=== PATIENT | female | born 1975 | race Two or more races ===

== ENCOUNTER → 2017-07-29 | Outpatient (CLI) | payer OTHER | END | disposition home or self-care (01) | LOC: CFH 10:32 | PROVIDERS: ATTEND Obstetrics & Gynecology | DX: Z12.31 Encounter for screening mammogram for malignant neoplasm of breast (principal) | CPT/HCPCS: G0202 ==

== ENCOUNTER 2019-03-03 21:15 | Emergency (ER) | payer OTHER ==
[2019-03-03 22:09] LABS: BASOPHILS # (AUTO) 0.01 x10^3/uL (0-0.1); BASOPHILS % (AUTO) 0 % (0-1); EOSINOPHILS # (AUTO) 0.18 x10^3/uL (0-0.4); EOSINOPHILS % (AUTO) 3 % (1-7); LYMPHOCYTES # (AUTO) 3.36 x10^3/uL (1-3.4); LYMPHOCYTES % (AUTO) 53 % (22-44); MD NO; MEAN CORPUSCULAR HEMOGLOBIN 31.4 pg (27.0-34.8); MEAN CORPUSCULAR VOLUME 92.3 fL (80-100); MEAN PLATELET VOLUME 11.1 fL (7.4-10.4); MONOCYTES # (AUTO) 0.42 x10^3/uL (0.2-0.8); MONOCYTES % (AUTO) 7 % (2-9); NEUTROPHILS # (AUTO) 2.37 x10^3/uL (1.8-6.8); NEUTROPHILS % (AUTO) 37 % (42-75); PLATELET COUNT 202 x10^3/uL (130-400); RED BLOOD COUNT 4.09 x10^6/uL (3.82-5.3)
[2019-03-03 22:19] LABS: ALBUMIN 3.9 g/dL (3.4-5.0); ANION GAP 5 mmol/L (5-15); CALCIUM 8.8 mg/dL (8.5-10.1); CHLORIDE 112 mmol/L (98-107); CREATININE 0.76 mg/dL (0.55-1.02)
--- NOTE | 2019-03-03 22:30 | NUR ---
pt called to room from lobby
--- NOTE | 2019-03-03 23:30 | NUR ---
PT HERE FOR GOFF, BUZZING IN EARS AND DIZZINESS. VSS. 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 TECH AT BEDSIDE. CALL LIGHT IN REACH
[2019-03-03 23:59] VITALS: BP 154/81
--- NOTE | 2019-03-04 00:13 | NUR ---
Patient given discharge instructions and they have confirmed that they understand the instructions. Patient ambulatory with steady gait.
== END 2019-03-04 00:16 | disposition home or self-care (01) ==
LOC: ED 23:59
DX: R51 Headache (principal); R42 Dizziness and giddiness; I10 Essential (primary) hypertension
CPT/HCPCS: 36415; 70450; 71046; 80048; 82040; 85025; 93005; 99284

== ENCOUNTER → 2020-12-22 | Outpatient (CLI) | payer OTHER | END | disposition home or self-care (01) | LOC: CFH 08:04 | PROVIDERS: ATTEND Obstetrics & Gynecology | DX: R92.8 Other abnormal and inconclusive findings on diagnostic imaging of breast (principal) | CPT/HCPCS: 76642; 77061; 77065; G0279 ==

== ENCOUNTER 2021-03-07 16:07 | Emergency (ER) | payer OTHER ==
[~2021-03-07] VITALS: Ht 149.9 cm; Wt 67.9 kg
[2021-03-07] MEDS ORDERED: KETOROLAC 30 MG/1 ML ONE (16:49)
[2021-03-07] MEDS ORDERED: LIDODERM 5% PATCH TD ONE ×2 (16:49→17:00)
[2021-03-07] MEDS ORDERED: DIAZEPAM 5 MG TABLET ONE (16:49)
[2021-03-07] MEDS ORDERED: DIAZEPAM 5 MG TABLET PO ONE (17:00)
[2021-03-07] MEDS ORDERED: KETOROLAC 30 MG/1 ML IM ONE (17:00)
--- NOTE | 2021-03-07 17:01 | NUR ---
PT MEDICATGED PER MAR
[2021-03-07 17:17] VITALS: BP 129/79
--- NOTE | 2021-03-07 17:18 | NUR ---
BREAK RN: PT SITTING ON MAGALY BERGER/WILMER. AT BS. CALL LIGHT WITHIN REACH. NO NEEDS AT THIS TIME
--- NOTE | 2021-03-07 17:45 | NUR ---
Patient given discharge instructions and they have confirmed that they understand the instructions. Patient ambulatory with steady gait.
== END 2021-03-07 17:48 | disposition home or self-care (01) ==
LOC: ED 17:40
DX: S16.1XXA Strain of muscle, fascia and tendon at neck level, initial encounter (principal); G44.209 Tension-type headache, unspecified, not intractable; I10 Essential (primary) hypertension; X58.XXXA Exposure to other specified factors, initial encounter; Y93.89 Activity, other specified; Y92.89 Other specified places as the place of occurrence of the external cause; Y99.8 Other external cause status
CPT/HCPCS: 96372; 99283; J1885